=== PATIENT | male | born 1970 | race African-American/Black ===

== ENCOUNTER 2019-06-01 22:41 | Inpatient (IN) | payer BC ==
[~2019-06-01] VITALS: Ht 185.4 cm; Wt 109.8 kg
--- NOTE | 2019-06-01 22:50 | NUR ---
PT BIBSELF C/O OF "STIFFNESS IN EXTREMETIES, CHEST TIGHTNESS " THAT STARTED LAST NIGHT. PT STATES HE WAS ADMITTED IN DECEMBER FOR RHABDOMYLOSIS AND "IT FEELS THE SAME." PT AXO4. RESPIRATIONS EVEN AND UNLABORED. PT PUT ON THE DIRECTOR [employer] AND PULSE OX. PENDING EVAL FROM ER .
[2019-06-01] MEDS ORDERED: KETOROLAC TROMETHAMINE INJ 30 MG/ML VIAL IV STA (23:28)
--- NOTE | 2019-06-01 23:30 | NUR ---
LABS DRAWN FROM [address] [facility], SENT TO LAB.
[2019-06-01] MEDS ORDERED: MORPHINE SULFATE INJ 2 MG/ML DISP.SYRIN IV STA (23:33)
--- NOTE | 2019-06-01 23:33 | NUR ---
EKG AT BEDSIDE.
[2019-06-01] MEDS ORDERED: MORPHINE SULFATE INJ 4 MG/ML DISP.SYRIN ONE (23:39)
[2019-06-01 23:45] LABS: BASOPHILS # (AUTO) 0.1 /CMM (0.0-0.2); BASOPHILS % (AUTO) 4.3 % (0.0-2.0); HEMATOCRIT 42 % (39-51); HEMOGLOBIN 14.3 g/dL (13.5-17.5); LYMPHOCYTES # (AUTO) 1.1 /CMM (0.8-4.8); LYMPHOCYTES % (AUTO) 36.3 % (20.0-44.0); MEAN CORPUSCULAR HGB CONC 34 g/dl (31.0-36.0); MEAN CORPUSCULAR VOLUME 85 fL (80-96); MONOCYTES # (AUTO) 0.2 /CMM (0.1-1.30); MONOCYTES % (AUTO) 6.3 % (2.0-12.0); NEUTROPHILS # (AUTO) 1.6 /CMM (1.8-8.9); NEUTROPHILS % (AUTO) 50.1 % (43.0-81.0); PLATELET COUNT (AUTO) 266 /CMM (150-450); RED BLOOD CELL COUNT(AUTO) 5.02 MIL/uL (4.5-6.0); WHITE BLOOD COUNT (AUTO) 3.1 K/uL (4.3-11.0)
[2019-06-01] MEDS ORDERED: KETOROLAC TROMETHAMINE INJ 60 MG/2 ML VIAL IM ONE (23:45)
--- NOTE | 2019-06-01 23:48 | NUR ---
XRAY AT BEDSIDE.
[2019-06-01 23:56] LABS: CALCIUM, SERUM 8.5 mg/dL (8.5-10.1); CARBON DIOXIDE 28 mmol/L (21-32); CHLORIDE 104 mmol/L (98-107); CREATININE 1.2 mg/dL (0.6-1.3); GLUCOSE 91 mg/dL (74-106); POTASSIUM 4.1 mmol/L (3.5-5.1); SODIUM SERUM 138 mmol/L (136-145); UREA NITROGEN, BLOOD 10 mg/dL (7-18)
[2019-06-02] MEDS ORDERED: IV NS 0.9% 1,000 ML BAG IV STA (00:50)
[2019-06-02] MEDS ORDERED: MORPHINE SULFATE INJ 2 MG/ML DISP.SYRIN IV STA (00:56)
[2019-06-02] MEDS ORDERED: MORPHINE SULFATE INJ 4 MG/ML DISP.SYRIN ONE (00:58)
[2019-06-02] MEDS ORDERED: ONDANSETRON HCL/PF 4 MG/2 ML VIAL ONE (00:58)
--- NOTE | 2019-06-02 00:58 | NUR ---
PAGED DR. CABELLO
[2019-06-02] MEDS ORDERED: ONDANSETRON HCL/PF 4 MG/2 ML VIAL IVP ONE (01:00)
--- NOTE | 2019-06-02 01:08 | NUR ---
BED ASSIGNMENT 112-1
--- NOTE | 2019-06-02 01:17 | NUR ---
REPORT GIVEN TO DANIEL ALTAMIRANO FOR [facility].
[2019-06-02 01:30] VITALS: BP 143/69
--- NOTE | 2019-06-02 01:40 | NUR ---
RN NOTES RECEIVED PATIENT FROM ER ON [facility]. PATIENT IS AWAKE, A/OX4, ON RA WITH SATURATION >95%. NO LABORED BREATHING, NO CHEST PAIN AT THIS TIME. PATIENT COMPLAINT OF GENERALIZED PAIN 10/10 AND WILL ADMINISTER MEDICATION AFTER BEING VERIFIED BY PHARMACY. IV LINE IS PATIENT AND INTACT WITH IVF. ALL SAFETY MEASURES ARE IN PLACE, BED IN LOW, LOCKED POSITION, CALL LIGHT IN REACH, WILL CONTINUE TO MONITOR PATIENT CLOSELY.
[2019-06-02] MEDS ORDERED: ACETAMINOPHEN 325 MG TABLET PO PRN (02:00)
[2019-06-02] MEDS ORDERED: AMLO5TAB4 PO (02:31)
[2019-06-02] MEDS ORDERED: CLON2TAB11 PO (02:34)
[2019-06-02] MEDS ORDERED: LOSA100T31 PO (02:35)
[2019-06-02] MEDS: IV 1/2NS 1000 ML 1,000 ML IV PRN ×3 (02:56→20:26)
[2019-06-02] MEDS: MORPHINE SULFATE INJ 2 MG/ML DISP.SYRIN IV PRN ×2 (02:56→09:27)
[2019-06-02] MEDS: ONDANSETRON HCL/PF 4 MG/2 ML VIAL IVP PRN ×3 (02:58→18:37)
[2019-06-02 04:00] VITALS: BP 144/80
--- NOTE | 2019-06-02 04:00 | NUR ---
RN NOTES PATIENT HAS MEDICATIONS WITH HIM. ALL MEDICATIONS HAS BEEN PLACED IN THE PATIENT'S OWN MEDICATION ENVELOPE AND WILL BE SENT TO PHARMACY. MEDICATIONS ARE AMLODIPINE 5MG-92TABLETS, LOSARTAN POTASSIUM 100MG -62 TABLETS, CLONAZEPAM 2MG -43 TABLETS.
[2019-06-02 07:14] LABS: ALBUMIN 3.5 g/dL (3.4-5.0); BILIRUBIN,TOTAL 0.5 mg/dL (0.2-1.0); CALCIUM, SERUM 8.2 mg/dL (8.5-10.1); CREATININE 1.3 mg/dL (0.6-1.3); POTASSIUM 4.1 mmol/L (3.5-5.1); TOTAL PROTEIN, SERUM 6.3 g/dL (6.4-8.2)
--- NOTE | 2019-06-02 07:48 | NUR ---
RN NOTES PATIENT IS IN BED A/A/O X4, IN STABLE CONDITION. NO CHANGES DURING MY SHIFT. REPORT IS GIVEN TO AM RN FOR MEDICAL PATHOLOGIST.
[2019-06-02 08:00] VITALS: BP 135/77
--- NOTE | 2019-06-02 08:00 | NUR ---
PT IN BED ON ROOM AIR PT STATES PAIN 8/10. PT GIVEN PRN MORPHINE PER EMAR. SEE CHART FOR EFFECTIVENESS. NO ACUTE DISTRESS NOTED PT MONITORING ONGOING.
--- NOTE | 2019-06-02 13:20 | NUR ---
RN NOTE: CALLED AND SPOKE WITH KAYLIN TOPETE DNP AND MADE HIM AWARE THAT THE PATIENT HAS BEEN VERBALIZING GENERALIZED PAIN AND WAS REQUESTING FOR A STRONGER PAIN MEDICATION. Siddhartha TOPETE DNP GAVE AN ORDER, NOTED AND CARRIED OUT. PATIENT AND PRIMARY NURSE LIDIA LEWIS RN MADE AWARE.
[2019-06-02] MEDS ORDERED: MORPHINE SULFATE INJ 4 MG/ML DISP.SYRIN IV PRN (13:30)
[2019-06-02 16:00] VITALS: BP 123/75
[2019-06-02] MEDS: HYDROMORPHONE 1 MG/1 ML DISP.SYRIN IV PRN ×2 (18:33→22:48)
--- NOTE | 2019-06-02 18:59 | NUR ---
PT IN BED NO S/S OF ACUTE DISTRESS PAIN MEDS GIVEN WILL TELL ONCOMING SHIFT TO REASSESS
--- NOTE | 2019-06-02 19:15 | NUR ---
RN PM OPENING NOTE BEDSIDE REPORT RECIEVED FROM TATY ALTAMIRANO. PATIENT AWAKE ALERT AND ORIENTED X4 REVIEWED POC QUESTIONS CONCERNS ADDRESED. PATIENT SEEN IN BED WITH SRX2 CALL LIGHT WITH IN REACH BED DOWN AND LOCKED. VERBALIZED UNDERSTANDING TO CALL FOR ASSISTANCE NEEDED.
[2019-06-02 20:00] VITALS: BP 139/73
[2019-06-03 04:00] VITALS: BP 128/77
[2019-06-03] MEDS: HYDROMORPHONE 1 MG/1 ML DISP.SYRIN IV PRN ×4 (04:03→19:36)
[2019-06-03] MEDS: IV 1/2NS 1000 ML 1,000 ML IV PRN ×2 (04:20→12:47)
--- NOTE | 2019-06-03 06:52 | NUR ---
RN PM CLOSING NOTE. PATIENT RESTING IN BED IN NO APPARENT DISTRESS BREATHING EVEN AND UNLABORED ON ROOM AIR. IVF CONT INFUSION TO LEFT AC AT 125ML/HR INFUSING TO LEFT AC WITH NO S/S OF INFILTRATION. PATIENT DENIES ANY NEEDS AT THIS TIME WILL ENDORSE POC TO ONCOMING SHIFT.
[2019-06-03 07:14] LABS: BASOPHILS % (AUTO) 1.1 % (0.0-2.0); EOSINOPHILS % (AUTO) 4.1 % (0.0-6.0); HEMATOCRIT 42 % (39-51); HEMOGLOBIN 14.3 g/dL (13.5-17.5); LYMPHOCYTES # (AUTO) 1.3 /CMM (0.8-4.8); LYMPHOCYTES % (AUTO) 46.1 % (20.0-44.0); MEAN CORPUSCULAR HGB CONC 34 g/dl (31.0-36.0); MEAN CORPUSCULAR VOLUME 85 fL (80-96); MONOCYTES # (AUTO) 0.3 /CMM (0.1-1.30); MONOCYTES % (AUTO) 10.2 % (2.0-12.0); NEUTROPHILS # (AUTO) 1.1 /CMM (1.8-8.9); NEUTROPHILS % (AUTO) 38.5 % (43.0-81.0); PLATELET COUNT (AUTO) 230 /CMM (150-450); RED BLOOD CELL COUNT(AUTO) 5.01 MIL/uL (4.5-6.0); WHITE BLOOD COUNT (AUTO) 2.9 K/uL (4.3-11.0)
--- NOTE | 2019-06-03 07:15 | NUR ---
RN INITIAL NOTES PATIENT IN BED. AWAKE AND ALERT. NO COMPLAINS OF ANY PAIN, DILAUDID WAS LAST GIVEN AT 0403. HAS A LEFT AC #18 WITH HNS RUNNING AT 125ML/HR. PATIENT ON ROOM AIR, NO SOB NOTED. AMBULATORY STEADY GAIT, BED ON LOWEST POSITION. CALL LIGHT WITHIN REACH. WILL CONT TO MONITOR
[2019-06-03 07:29] LABS: CALCIUM, SERUM 8.7 mg/dL (8.5-10.1); CREATININE 1.3 mg/dL (0.6-1.3); MAGNESIUM 2.1 mg/dL (1.8-2.4)
[2019-06-03 07:35] LABS: POTASSIUM 4.1 mmol/L (3.5-5.1)
[2019-06-03 08:00] VITALS: BP 140/64
[2019-06-03] MEDS: ONDANSETRON HCL/PF 4 MG/2 ML VIAL IVP PRN ×2 (10:27→19:06)
--- NOTE | 2019-06-03 12:09 | NUR ---
RN NOTES PATIENT COMPLAINING OF PAIN AT HIS LEFT AC IV SITE. PATIENT REQUESTED TO GET IT REMOVED AND INSERT A NEW ONE. WAS ABLE TO INSERT LEFT FOREARM #20, RUNNING HALF NS AT THIS TIME AT 125ML/HR. PATENT AND INTACT
--- NOTE | 2019-06-03 14:48 | NUR ---
RN NOTES PATIENT ASKED FOR PAIN MEDICATION, FOR GENERALIZED PAIN. ALSO, ASKED FOR ZOFRAN. BUT ZOFRAN IS PRN Q6H AND ITS ONLY BEEN 4H. GAVE PATIENT SOME ICE CHIPS FOR NOW
--- NOTE | 2019-06-03 15:26 | NUR ---
RN NOTES GOT DISCHARGE ORDERS FROM [facility]. PATIENT REQUESTING TO LEAVE AT 9PM HA[facility]. MD AWARE AND MALLIKA MADE AWARE. EXIT CARE DONE WELL
[2019-06-03 16:00] VITALS: BP 132/70
--- NOTE | 2019-06-03 18:42 | NUR ---
RN CLOSING NOTES PATIENT IN BED, AWAKE AND ALERT. NO COMPLAINS OF ANY PAIN NOR SOB AT THIS TIME. ON ROOM AIR. PATIENT WILL BE DC TODAY AT 9PM PER PATIENT'S REQUEST. ALL EXIT CARE DONE. PATIENT STILL ON IV FLUIDS RUNNING AT 125ML/HR. CK TRENDING DOWN. ALL NEEDS MET. WILL ENDORSE TO NOC SHIFT FOR [place]
--- NOTE | 2019-06-03 19:15 | NUR ---
MS RN NOTE PATIENT REPORT GIVEN BEDSIDE. PATIENT IN BED SITTING UP A/O X 4 NO S/S OF DISTRESS. PATIENT C/O GENERALIZED PAIN DILAUDID TO BE GIVEN PER PRN MD ORDER. PATIENT AWARE OF D/C STATES HIS WILL PICK HIM UP A LITTER BEFORE NINE. PATIENT HAS 20 G LFA PATENT INTACT NO S.S OF INFILTRATION AND INFECTION. PATIENT DENIES CHEST PAIN/ SOB . SAFETY PRECAUTIONS IN PLACE, SIDE RAILS UP X 2 MILDRED LIGHT IN HAND. GOALS DISCUSSED WITH PATIENT. RN WILL CONTINUE TO MONITOR.
[2019-06-03 20:00] VITALS: BP 162/69
--- NOTE | 2019-06-03 20:44 | NUR ---
MS RN NOTE PATIENT ARRIVED, IV REMOVED. DISCHARGE INSTRUCTIONS DISCUSSED AND GIVEN TO PATIENT AND . BOTH VERBALIZE UNDERSTANDING OF INSTRUCTIONS.
--- NOTE | 2019-06-03 21:00 | NUR ---
MS RN NOTE PATIENT D/C FROM UNIT LEAVING UNIT WITH
== END 2019-06-03 20:47 | disposition home or self-care (01) | DRG 558 ==
LOC: ER 22:48 → MEDSG1 06-02 01:18
PROVIDERS: ADMIT Internal Medicine; ATTEND Internal Medicine
DX: M62.82 Rhabdomyolysis (principal); I10 Essential (primary) hypertension; E66.9 Obesity, unspecified; Z68.31 Body mass index [BMI] 31.0-31.9, adult; R07.89 Other chest pain; F12.90 Cannabis use, unspecified, uncomplicated
CPT/HCPCS: 36415; 71045-TC; 80048-TC; 80053-TC; 82550-TC; 83735-TC; 84484-TC; 85025-TC; 87081-TC; G0378; J1170; J1885; J2270; J2405; J3490; J7030